=== PATIENT | male | born 1965 | race Hispanic/Latino ===

== ENCOUNTER → 2022-07-22 | Outpatient (CLI) | payer BC | END | disposition home or self-care (01) | LOC: RAH 11:36 | PROVIDERS: ATTEND Physician Assistant | DX: M54.16 Radiculopathy, lumbar region (principal); M54.51 Vertebrogenic low back pain | CPT/HCPCS: 72114 ==

== ENCOUNTER → 2022-08-06 | Outpatient (CLI) | payer BC | END | disposition home or self-care (01) | LOC: RAH 07:29 | PROVIDERS: ATTEND Physical Medicine & Rehabilitation | DX: M51.16 Intervertebral disc disorders with radiculopathy, lumbar region (principal); M47.26 Other spondylosis with radiculopathy, lumbar region | CPT/HCPCS: 72148 ==

== ENCOUNTER → 2023-05-15 | Outpatient (CLI) | payer BC | END | disposition home or self-care (01) | LOC: RAH 10:37 | PROVIDERS: ATTEND Neurological Surgery | DX: M43.16 Spondylolisthesis, lumbar region (principal); M47.816 Spondylosis without myelopathy or radiculopathy, lumbar region | CPT/HCPCS: 72114 ==

== ENCOUNTER → 2023-06-27 | Outpatient (CLI) | payer BC | END | disposition home or self-care (01) | LOC: RAH 12:54 | PROVIDERS: ATTEND Physical Medicine & Rehabilitation | DX: M47.27 Other spondylosis with radiculopathy, lumbosacral region (principal); M48.07 Spinal stenosis, lumbosacral region | CPT/HCPCS: 72131 ==

== ENCOUNTER → 2024-05-12 | Outpatient (CLI) | payer BC | END | disposition home or self-care (01) | LOC: RAH 11:51 | PROVIDERS: ATTEND Neuromusculoskeletal Medicine & OMM | DX: M47.816 Spondylosis without myelopathy or radiculopathy, lumbar region (principal); M48.07 Spinal stenosis, lumbosacral region; M48.062 Spinal stenosis, lumbar region with neurogenic claudication | CPT/HCPCS: 72148 ==

== ENCOUNTER → 2024-12-07 | Outpatient (CLI) | payer BC ==
--- NOTE | 2024-12-07 15:35 | HMCIMG ---
LUMBAR W FLEXION/EXTENSION REASON: RADICULOPATHY, LUMBAR REGION COMPARISON: None TECHNIQUE: 4 views were obtained including flexion and extension. FINDINGS: There are marked degenerative changes posterior facets at L3, L4 and L5. Interspace heights are preserved. Alignment is normal. Normal vertebral body alignment persists on flexion and extension views. Soft tissues appear unremarkable. There is a left total hip joint prosthesis. IMPRESSION: 1. 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 2. Normal vertebral body alignment, no change on flexion and extension.
== END | disposition home or self-care (01) ==
LOC: RAH 11:08
PROVIDERS: ATTEND Neurological Surgery
DX: M47.26 Other spondylosis with radiculopathy, lumbar region (principal)
CPT/HCPCS: 72114

== ENCOUNTER → 2025-07-08 | Outpatient (CLI) | payer BC ==
[2025-07-08 10:40] LABS: IMMATURE GRANULOCYTE ABSOLUTE 0.03 K/uL (0-1); NUCLEATED RED BLOOD CELLS 0.0 % (0.0-0.19); PLATELET COUNT (AUTO) 110 K/uL (130-400); RED BLOOD CELL COUNT(AUTO) 5.08 MIL/uL (4.50-6.20); RED CELL DISTRIBUTION WIDTH 13.4 % (11.0-15.5); WHITE BLOOD COUNT (AUTO) 8.3 K/uL (4.8-10.8)
[2025-07-08 11:03] LABS: ASPARTATE AMINOTRANSFERASE 58.0 U/L (10-37); CREATININE 1.2 mg/dL (0.5-1.3); GLOMERULAR FILTR. RATE CALC 70.0 mL/min (>90); GLUCOSE,RANDOM 186.0 mg/dL (70-105); SODIUM SERUM 139.0 mmol/L (136-145); TOTAL PROTEIN, SERUM 8.5 g/dL (6.0-8.3); UREA NITROGEN, BLOOD 18.0 mg/dL (7-18)
[2025-07-08 11:30] LABS: HIV 1&2 ANTIBODY Non-Reactive (Negative)
[2025-07-09 09:12] LABS: RHEUMATOID ARTHRITIS FACTOR 10.5 IU/mL (<14.0)
[2025-07-11 09:11] LABS: FREE KAPPA LIGHT CHAINS,S 72.8 mg/L (3.3-19.4)
[2025-07-11 14:12] LABS: ALBUMIN (IFE & ELECTROPHOR) 3.4 g/dL (2.9-4.4); ALBUMIN/GLOBULIN RATIO (IFE) 0.8 (0.7-1.7); ALPHA-1 (IFE & PEP) 0.3 g/dL (0.0-0.4); ALPHA-2 (IFE & PEP) 0.8 g/dL (0.4-1.0); BETA (IFE & ELP) 1.4 g/dL (0.7-1.3); GAMMA GLOBULINS (IFE & ELP) 1.7 g/dL (0.4-1.8); GLOBULIN TOTAL (IFE) 4.3 g/dL (2.2-3.9); IGA (IFE) 364 mg/dL (90-386); IGG (IMMUNOFIXATION) 1898 mg/dL (603-1613); IGM (IMMUNOFIXATION) 24 mg/dL (20-172); IMMUNOFIXATION RESULT Note: (.); M-SPIKE (IEP) Not Observed g/dL (Not Observed)
[2025-07-11 15:13] LABS: ATYPICAL P-ANCA AB <1:20 titer (Neg:<1:20)
[2025-07-12 20:10] LABS: ZINC PLASMA 70 ug/dL (44-115)
== END | disposition home or self-care (01) ==
LOC: LAB 08:58
PROVIDERS: ATTEND Psychiatry & Neurology Neurology
DX: E56.9 Vitamin deficiency, unspecified (principal); E63.9 Nutritional deficiency, unspecified; G60.9 Hereditary and idiopathic neuropathy, unspecified; G89.29 Other chronic pain; E72.20 Disorder of urea cycle metabolism, unspecified; Z13.1 Encounter for screening for diabetes mellitus; Z11.3 Encounter for screening for infections with a predominantly sexual mode of transmission
CPT/HCPCS: 36415; 80050; 80053; 82140; 82306; 82525; 82542; 82607; 83001; 83036; 83090; 83521; 83921; 84207; 84425; 84439; 84443; 84446; 84630; 85025; 86038; 86215; 86235; 86255; 86334; 86431; 86592; 86701; 87390

== ENCOUNTER → 2025-08-23 | Outpatient (CLI) | payer BC ==
[2025-08-23 12:36] LABS: HIV 1&2 ANTIBODY Non-Reactive (Negative)
[2025-08-24 08:13] LABS: RHEUMATOID ARTHRITIS FACTOR <10.0 IU/mL (<14.0)
[2025-08-25 15:14] LABS: ATYPICAL P-ANCA AB <1:20 titer (Neg:<1:20); KAPPA/LAMBDA RATIO,URINE 4.45 (1.83-14.26)
[2025-08-26 01:10] LABS: ZINC PLASMA 67 ug/dL (44-115)
== END | disposition home or self-care (01) ==
LOC: LAB 09:50
PROVIDERS: ATTEND Psychiatry & Neurology Neurology
DX: G60.9 Hereditary and idiopathic neuropathy, unspecified (principal); E56.9 Vitamin deficiency, unspecified; E63.9 Nutritional deficiency, unspecified; Z11.3 Encounter for screening for infections with a predominantly sexual mode of transmission; E72.20 Disorder of urea cycle metabolism, unspecified; G62.89 Other specified polyneuropathies
CPT/HCPCS: 36415; 82140; 82525; 82542; 82746; 83090; 83883; 83921; 84207; 84425; 84439; 84443; 84446; 84630; 86038; 86235; 86255; 86334; 86431; 86592; 86701; 87390

== ENCOUNTER → 2025-09-08 | Outpatient (CLI) | payer BC ==
[2025-09-08 09:47] LABS: IMMATURE GRANULOCYTE ABSOLUTE 0.03 K/uL (0-1); NUCLEATED RED BLOOD CELLS 0.0 % (0.0-0.19); PLATELET COUNT (AUTO) 124 K/uL (130-400); RED BLOOD CELL COUNT(AUTO) 4.67 MIL/uL (4.50-6.20); RED CELL DISTRIBUTION WIDTH 13.6 % (11.0-15.5); WHITE BLOOD COUNT (AUTO) 7.9 K/uL (4.8-10.8)
[2025-09-08 09:56] LABS: INR 1.03 (0.85-1.15)
[2025-09-08 10:08] LABS: % IRON SATURATION 40.3 % (30-44); IRON, SERUM 119.0 mcg/dL (65-175)
[2025-09-08 10:12] LABS: ASPARTATE AMINOTRANSFERASE 73.0 U/L (10-37); CREATININE 1.1 mg/dL (0.5-1.3); GLOMERULAR FILTR. RATE CALC 77.0 mL/min (>90); GLUCOSE,RANDOM 152.0 mg/dL (70-105); SODIUM SERUM 139.0 mmol/L (136-145); TOTAL PROTEIN, SERUM 8.5 g/dL (6.0-8.3); UREA NITROGEN, BLOOD 17.0 mg/dL (7-18)
[2025-09-08 10:24] LABS: GAMMA GLUTAMYL TRANSFERASE 246.0 U/L (5-85)
[2025-09-09 07:15] LABS: HEPATITIS A ANTIBODY TOTAL Negative (Negative)
[2025-09-09 16:18] LABS: HEPATITIS A IGM ANTIBODY Non-Reactive (Nonreactive); HEPATITIS B CORE AB TOTAL Non-Reactive (Nonreactive); HEPATITIS B CORE IGM ANTIBODY Non-Reactive (Negative)
[2025-09-10 07:14] LABS: ALPHA-1-ANTITRYPSIN 181 mg/dL (101-187)
== END | disposition home or self-care (01) ==
LOC: LAB 08:50
PROVIDERS: ATTEND Internal Medicine Gastroenterology
DX: R93.2 Abnormal findings on diagnostic imaging of liver and biliary tract (principal); R94.5 Abnormal results of liver function studies; Z79.899 Other long term (current) drug therapy
CPT/HCPCS: 36415; 80053; 80074; 82103; 82390; 82728; 82977; 83540; 83550; 85025; 85610; 86015; 86038; 86215; 86235; 86376; 86381; 86704; 86708